=== PATIENT | female | born 1945 | race African-American/Black ===

== ENCOUNTER 2020-04-16 14:58 | Inpatient (IN) | payer OTHER ==
[~2020-04-16] VITALS: Ht 172.7 cm; Wt 72.1 kg
[2020-04-16] MEDS ORDERED: NORVASC 2.5 MG2.5 M1 PO (15:22)
[2020-04-16] MEDS ORDERED: EMERGEN-C 500500 MG PO (15:37)
[2020-04-16] MEDS ORDERED: ASA81BEC PO (15:38)
[2020-04-16] MEDS ORDERED: BUSPIRONE HCL10 MG PO (15:40)
[2020-04-16] MEDS ORDERED: CARVEDILOL25 MG PO (15:41)
[2020-04-16] MEDS ORDERED: CLONIDINE HCL0.2 M2 PO (15:42)
[2020-04-16] MEDS ORDERED: CYMBALTA60 MG PO (15:43)
[2020-04-16] MEDS ORDERED: SLOW FE142 MG PO (15:46)
[2020-04-16] MEDS ORDERED: FUROSEMIDE 20 M20 MG PO (15:47)
[2020-04-16] MEDS ORDERED: ARAVA20 MG PO (15:49)
[2020-04-16] MEDS ORDERED: COZAAR 25 MG TA25 M1 PO (15:50)
[2020-04-16] MEDS ORDERED: SINGULAIR 10 MG10 MG PO (15:51)
[2020-04-16] MEDS ORDERED: KLOR-CON 1010 MEQ PO (15:55)
[2020-04-16] MEDS ORDERED: SEROQUEL 50 MG50 M1 PO (15:57)
[2020-04-16] MEDS ORDERED: SIMVASTATIN80 MG PO (15:58)
[2020-04-16] MEDS ORDERED: SUPER THERAVIT1 EACH PO (15:59)
[2020-04-16 17:00] VITALS: BP 146/78
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
[2020-04-16 20:30] VITALS: BP 146/78
--- NOTE | 2020-04-17 07:39 | NUR ---
PATIENT HAS BEEN COMBATIVE AND YELLING AND ATTENTION SEEKING. SHE IS A HI FALL RISK AND WILL STAND AND THEN BECOME UNSTEADY ON FEET OR LEGS BUCKLE OUT FROM UNDER HER. SHE HAS BEEN REFUSING MEDICATIONS AND ARGUMENTATIVE. PATIENT GIVEN GEODON 15MG IM AT 04/16 FOR BEHAVIORS. PATIENT USES WC DURING DAY. SHE IS A/0 1-2. PATIENT IS UNCOOPERATIVE AND DOES NOT FOLLOW DIRECTIONS.
[2020-04-17 11:35] VITALS: BP 157/91
--- NOTE | 2020-04-17 13:02 | NUR ---
Sitting in recliner with sitter at side. Alert and orientated X2, answering questions appropriately. Denies SI/HI. Makes spontaneous jerks occassionally. Some attention seeking behavior. Breath sounds clear t/o. Reg HR auscultated. Color pink with brisk capillary refill and palpable peripheral pulses. Yellow urine per commode. Active bowel sounds over soft, rounded abdomen. States BM was yesterday, smear of stool this am. Thick, dry skin over healed wound on coccyx, optiform applied.
--- NOTE | 2020-04-17 13:58 | NUR ---
ELENA contacted Shona Reynolds. No answer. Lft msg. ELENA contacted Jackie with [email or web address] at [phone]. No answer. Lft msg
[2020-04-17 21:40] VITALS: BP 167/103
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
[2020-04-17 22:00] VITALS: BP 167/103
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
--- NOTE | 2020-04-18 03:33 | NUR ---
Patient has been up all night at this time. Labile, delusional. Patient is now rocking back and forth aggressively, attempting to throw self forward and out of chair. Patient also making suicidal statements and wrapping her hands around her neck. Patient becoming more difficult to re-direct. Dr. Green notified. Order obtained for Ativan 2mg IM 1x dose stat.
--- NOTE | 2020-04-18 05:02 | NUR ---
Approximatly 330 am patient has become unconsolable. Patient threatening to choke herself and rocking wildly in her reclining chair. Patient is a 1:1 and a lap vnaessa was put on. Patient given 2ml of Lorazapam IM for behaviors and anxiety. We will continue to monitor per hospital protocol.
--- NOTE | 2020-04-18 12:00 | NUR ---
Took AM meds. Has sitter 1:1 for safety. No mention of SI/HI/AH/VH. Eating well. Conversing with sitter, though did get upset with nuerse and sitter. Kept talking loud saying no one should tell her what to do.
--- NOTE | 2020-04-18 15:55 | NUR ---
Was given PRN IM for agitation, cursing, inappropriate behavior, loud. went to sleep when came to dayroom afterwards. Slept through lunch, offered lunch later. behavior improved.
[2020-04-18 20:17] VITALS: BP 151/95
[2020-04-18 20:30] VITALS: BP 151/95
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
--- NOTE | 2020-04-19 11:45 | NUR ---
pt. refused to haveher blood sugar taken at ll:00. Dr. noel notified.
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
--- NOTE | 2020-04-19 13:46 | NUR ---
Pt was in hallway when I first saw her sitting in the lounge chair. Pt was ververbal, loud and saying I want to , come on give me some medicine so I can . Staff has tried to calm pt down and encourage hertotake her medications with little results. The DR ordered 15 mg IM Geodon for aggitation and confussion. Pt was also on the phone talking with her sister [DPLUCHO] about refusing to do blood sugar testing or taking Insulin doses. Pt is in lounge chair when IM geodon was given. To observe pt for safety.
[2020-04-19 16:22] VITALS: BP 109/68
[2020-04-19 19:19] VITALS: BP 182/94
[2020-04-19 22:00] VITALS: BP 182/94
--- NOTE | 2020-04-20 06:54 | NUR ---
PATIENT HAS BEEN VERY PLEASANT THIS MORNING. SHE HAD HER LAB WORK DRAWN AND DID NOT COMPLAIN, SCREAM OR BECOME COMBATIVE. SHE REMAINED CALM. SHE HAS BEEN VERY POLITE THIS MORNING AND HAS BEEN TOILETED TWICE. NEW ORDER FOR FBS AC BREAKFAST DAILY. PATIENT SITTING IN DINING ROOM DRINKING COFFEE AND SITTING QUIETLY.
[2020-04-20 07:20] VITALS: BP 171/101
[2020-04-20 08:00] VITALS: BP 163/97
--- NOTE | 2020-04-20 09:23 | NUR ---
PT SITTING IN DINING ROOM IN RECLINER. PT STATED HER GOAL IS TO READ A BOOK TO BUILD HIMSELF UP. PT DENIES ANY PAIN AT THIS TIME. PT DID SAY SHE HAS NUMBNESS TO HANDS AND FEET. SHE IS WEARING GLOVES DUE TO NUMBNESS OF HANDS. PT LUNGS CLEAR. PT USES WALKER TO AMBULATE, PT ALSO LIKES TO SIT IN RECLINER IN DAY ROON. PT TOOK MEDS WITHOUT ANY ISSUES. PT WANTED VITAMIN CUT IN HALF.
--- NOTE | 2020-04-20 18:16 | NUR ---
PT TAKING PO MEDICATION THIS DEUCE, PT UPSET ABOUT THE AIDES TAKING HER FOOD TOO EARLY. PT DOES DOOZE OFF AT TIMES IN THE CHAIR. PT DID HAVE A LARGE FORMED BM TODAY. PT ABLE TO TRANSFER TO BSC X1-2 ASSIST.
[2020-04-20 20:00] VITALS: BP 142/83
[2020-04-20 22:00] VITALS: BP 142/83
--- NOTE | 2020-04-21 00:55 | NUR ---
Assumed care of patient this pm shift. Patient in good spirits. Patient states that she is trying to turn over a new leaf. Patient talkative and cooperative with RN. Patient med adherent. Patient takes medications whole with fluids. Patient denies hi/si. Patient ambulates via wheelchair. Patient is a falls risk and is wearing the yellow shirt and yellow slippers. Patient requires assistance getting from the wheelchair to the bed or toilet. Patient is alert and oriented to self, place, time, and situation. Patients assessment shows no acute distress. We will continue to monitor per hospital protocol.
[2020-04-21 07:51] VITALS: BP 172/101
[2020-04-21 10:50] VITALS: BP 115/67
--- NOTE | 2020-04-21 12:43 | NUR ---
1225 RESUMMED CARE FROM OVERNIGHT SHIFT THIS AM, PATIENT SITTING IN DAY ROOM WAITING FOR BREAKFAST. PATIENT ATE TOOK MEDICATION WITHOUT INCIDENCE, PATIENTS ABDOMEN SOFT ROUND BOWEL SOUNDS PRESENT. PATIENTS LUNGS CLEAR PATIENT DENIES SI/HI/AH/VH AT PRESENT. PATIENT IN RECLINER FOR MORE COMFORT THEN W/C PATIENT CALM COOPERATIVE. WILL CONTINUE TO MONITOR PATIENT FOR SAFETY AND BEHAVIORS.
--- NOTE | 2020-04-22 02:47 | NUR ---
04-21-20 CARE TRANSFERED 1915 PT SITTING IN DAY ROOM IN RECLINER. 2000 PT AAOX2 PT IS TEARFUL AND SHE REPORTS BECAUSE NONE OF HER FAMILY WILL VISIT HER; ATTEMPTED TO COMFORT, THEN PT SWITCH TO SHE IS IN HORRIBLE PAIN. PT VSS, RR EVEN AND NONLABORED ON RA, PT REPORTS PAIN IN LEFT HIP 10 ON 0-10 SALE, PT DENIES SI/SH/HI/VAH. PT MAR REVIEWED AND NOTED ZERO PAIN MEDICATION AVILABLE AND TYLENOL WAS D/C PRIOR TO MEDICATION ADMIN. PT HAD ZERO DIFFICULTIES TAKING MEDICATION. ASSISTED PT ONTO BEDSIDE COMMODE AND PT HAD LARGE FORMED, FIRM GREENISH BROWN BM WITH SMALL AMOUNT OF YELLOW URINE, PLACED PTIN BED AND ADUSTED BED FOR CONFORT, BED LOWEST POSITION, LOCKED AND ALARM ON. APPROXIMATELY 2340 RESPONDED TO PT ROOM AND PT REPORTED SHE CANNOT TAKE THIS PAIN ANY MORE, PT REPORT OVERALL BODY PAIN AT A 15 ON O-10 SACLE, PT SKIN W/D, FACIAL FEATURES RELAXED, PT IS TEARFUL, MAR REVIEWED AND SLEEP AID PROVIDED. DURING NEXT ROUND NOTED PT SUPINE RESTING WITH EYES CLOSED. OF NOTE, PLEASE REFER TO NURSING INTERVENTIONS FOR MORE INFORMATION. ZERO ACUTE EMOTIONAL OR MEDICAL DISTRESS NOTED. WILL CONTINUE TO MONITOR PT PER [facility] PROTOCOL.
[2020-04-22 08:58] VITALS: BP 136/101
[2020-04-22 20:03] VITALS: BP 156/87
[2020-04-22 22:00] VITALS: BP 156/87
--- NOTE | 2020-04-23 00:39 | NUR ---
Assumed care of patient this pm shift. Patient in good spirits in her bed. Patient denies hi/si. Patient does state that she has pain and was given tylenol that is scheduled. Patient is neat and clean. Patient is medication adherent. Patient takes medications whole with thin fluids. Patient is alert and oriented x3. Patient is not ambulatory and uses a wheelchair for trips to the [facility] and can use a walker which is in her bedroom. Patients assessment shows no signs of acute distress. We will continue to monitor per hospital protocol.
--- NOTE | 2020-04-23 04:19 | NUR ---
Patient up at this time. Patient toileted and assisted to dayroom per patient request. Patient reporting increased pain to right hand. 2+ pitting edema observed to right hand. Pulse equal and strong. <3 sec cap refill. Decreased ROM. Patient denies hitting hand accidentally. HAIR Saravia, notified. Order obtained for Ibuprofen 400mg PO 1x dose now; right hand x-ray 2 view in the AM.
[2020-04-23 05:58] LABS: HEMATOCRIT 25.3 % (37.0-47.0); HEMOGLOBIN 8.5 gm/dL (12.0-15.0); MCHC 33.4 g/dL (28.0-37.0); MCV 83.8 fL (80.0-100.0); PLATELET COUNT 226 thou/uL (150-400); RBC 3.02 mil/uL (4.20-5.00); RDW 15.3 % (10.5-14.5); WBC 7.4 thou/uL (4.0-11.0)
[2020-04-23 06:07] LABS: CALCIUM 9.2 mg/dL (8.5-10.1); POTASSIUM 3.2 mmol/L (3.5-5.1)
[2020-04-23 07:45] VITALS: BP 155/58
[2020-04-23 08:46] LABS: ABSOLUTE NEUTROPHILS 5.8 thou/uL (1.4-8.2); PLATELET ESTIMATE NORMAL
[2020-04-23 10:23] VITALS: BP 151/84
[2020-04-23 11:20] LABS: ABSOLUTE RETIC COUNT 0.0464 10^6/uL; OBSERVED RETIC COUNT 1.54 % (0.6-2.6)
[2020-04-23 11:27] LABS: % SATURATION 4 % (20-39); IRON 10 ug/dL (50-170); TIBC 224 ug/dL (250-450)
--- NOTE | 2020-04-23 12:52 | NUR ---
RT Progress Note- Nuvia remains present in the milieu though her participation and attendance in recreation groups is variable dependent upon her mood. When in attendance, Nuvia requires reminders to stay on task as she enjoys talking and telling stories. Nuvia requires staff assistance to modify some activity d/t pain and swelling in her hands.
--- NOTE | 2020-04-23 13:12 | NUR ---
1300 RESUMMED CARE THIS AM FROM OVERNIGHT SHIFT THIS AM, PATIENT IN DAY ROOM IN RECLINER QUIET. PATIENT ATE BREAKFAST WITH ASSISTANCE FROM NURSE PATIENT TOOK MEDICATION WITHOUT INCIDNCE. PATIENTS ABDOMEN SOFT ROUUND BOWEL SOUNDS PRESENT LUNGS CLEAR. PATIENT DENIES SI/HI/AH/VH AT PRESENT. HOSPTALIST CAME AND TALKED WITH PATIENT ABOUT THYROID AND WEIGHT LOSS. PATIENT VERY TALKATIVE WITH STAFF AND OTHER PATIENTS. PATIENT COOPERATIVE NO BEHAVIOR PROBLEMS WILL CONTINUE TO MONITOR PATIENT FOR SAFETY AND BEHAVIORS.
--- NOTE | 2020-04-23 17:45 | NUR ---
ELENA left message for Dara with [facility] [phone]. ELENA spoke to Shona sister with Dr. Green to provide an update on patient's care. Shona was concerned about needing to pay pt's rent for the month of April. She was informed that Dr. Green's recommendation is placement in a facility that can address her complex medical and physical needs. She was also informed the team would follow up with her on Thursday of this week.
[2020-04-23 20:14] VITALS: BP 127/66
[2020-04-23 22:00] VITALS: BP 127/66
--- NOTE | 2020-04-24 00:43 | NUR ---
Assumed care of patient this pm shift. Patient in good spirits. Patient calm and cooperative. Patient denies hi/si. Patient wants to get up and walk and get some exercise and requested that the RN set up physical therapy and occupational therapy. Patient states that she has pain in the right hand. The right hand shows swelling at 2+. Patient takes medications whole with thin fluids. Patients assessment shows no signs of acute distress. Patient ambulates via wheelchair. Patient is incontinent of bowel and bladder. We will continue to monitor per hospital policy.
[2020-04-24 08:08] LABS: THYROID PEROXIDASE AB 11 IU/mL (0-34)
[2020-04-24 08:30] VITALS: BP 161/100
[2020-04-24 09:29] VITALS: BP 161/100
--- NOTE | 2020-04-24 09:45 | NUR ---
PT SITTING IN DINING ROOM IN GROUP, PT STATED SHE NEEDED A ROGERS DUE TO FEELING TO VOMIT. PT VOMITED PARTIALY DIGESTED FOOD. PT STATED SHE DID EAT ALL HER BREAKFAST. PT STATED SHE THINKS ITS FROM PSYCHOTROPHIC MEDICATION, THAT HER BODY IS REJECTING IT. PT STATED SHE KNEW SHE WAS FEELING SICK.
--- NOTE | 2020-04-24 09:53 | NUR ---
ADM ZOFRAN 4MG PO FOR NAUSEA. PT WASHED OUT HER MOUTH WITH WATER AND MOUTH WASH.
[2020-04-24 10:30] VITALS: BP 146/85
--- NOTE | 2020-04-24 10:30 | NUR ---
ADM BP MEDICATION AT THIS TIME. PT BP BETTER 146/85, PULSE 97.
--- NOTE | 2020-04-24 11:06 | NUR ---
PT VOMITING AT THIS TIME AGAIN. PT STATED SHE HAS SOME PAIN TO LEFT ARM, PT STATED IT WASN'T NEW.
--- NOTE | 2020-04-24 11:47 | HC ---
[facility] [place] [address] CONSULTATION Name: JEY BROWN Room #: 521A-A ADM IN M.R.#: [id number] Admission: 04/16/20 Attend Phys: Alber Green DO Discharge: Date of : 45 Report #: [id number] THIS REPORT FOR: cc: [facility] - Clinic physician unknown [facility] - Clinic physician unknown Can Ochoa MD ~ CC: Alber PATE unknown DATE OF SERVICE: 04/23/2020 ENDOCRINE CONSULTATION NOTE CONSULTING PHYSICIAN: Alber Green D.O. REASON FOR CONSULTATION: Hyperthyroidism. HISTORY OF PRESENT ILLNESS: This is a 74-year-old female patient whose medical background is significant for multiple medical issues including coronary artery disease, history of prior CVA, hypertension, hyperlipidemia, chronic kidney disease as well as type 2 diabetes mellitus. The patient also has a significant psychiatric background noted for schizoaffective disorder. It appears that the patient has had a lengthy stay at the [facility] for the issue of diskitis with prolonged IV antibiotic therapy. She was subsequently transferred directly from the [facility] due to increased psychotic changes and agitation. The patient has fairly extensive [facility] records, which were reviewed in their entirety. During her hospital stay there, the patient was treated for hypertensive urgency as well as for the issue of diskitis and osteomyelitis centered at C7/T1 and C6/T1. The patient was treated with antibiotics and discharged with a PICC line to enable vancomycin and Rocephin therapy. During her current hospital stay, the patient was investigated with thyroid function studies, which pointed out to evidence of possible hyperthyroidism. On further questioning, the patient explained that she does not have a prior personal history or family history of thyroid disease. She denied having palpitations, but explained that she would have recurrent episodes of chest discomfort and heaviness to where she would think she might be having a heart attack, she has not had particular issue with tremors. She believes that she has lost some weight, but is unable to identify how much weight and the duration of time that it took to incur that weight loss. She has been more anxious and agitated lately. The patient has been dealing with sleep disturbances chronically. She does not believe that she is typically heat intolerant or subject to excessive sweating. The patient denies having experienced significant neck fullness, discomfort, compressive symptoms or voice changes. [address] [address] CONSULTATION Name: JEY BROWN Room #: 521A-A [facility] IN ..#: [id number] Admission: 04/16/20 Attend Phys: Alber Green DO Discharge: Date of : 45 Report #: [id number] The patient's history is noted for type 2 diabetes mellitus, which was treated with metformin monotherapy. Also, the patient's background is noted for polymyalgia rheumatica and fibromyalgia and it appears that the patient has received chronic prednisone therapy for these issues. REVIEW OF SYSTEMS: CONSTITUTIONAL: Fatigue, tiredness, but not recent fever or chills. The patient believes that she had lost weight. HEENT: Negative for sore throat, sinus pain or ear drainage. PULMONARY: Occasional shortness of breath and cough. No hemoptysis. CARDIAC: Occasional chest heaviness, but no palpitation, syncope or presyncope. GASTROINTESTINAL: Negative for abdominal pain, nausea, vomiting or changes in bowel movement frequency. NEUROLOGY: Negative for loss of consciousness, headaches, seizure activity. PSYCHIATRIC: History is noted for schizoaffective disorder. MUSCULOSKELETAL: Diffuse joint and muscle aches with a baseline history of polymyalgia rheumatica and fibromyalgia. Otherwise, review of systems noncontributory other than those mentioned in HPI. DRUG ALLERGIES: FELDENE, LISINOPRIL, FLOVENT and TAPE. PAST MEDICAL HISTORY: 1. Type 2 diabetes mellitus. 2. Jolly's palsy. 3. Hypertension. 4. Hyperlipidemia. 5. Polymyalgia rheumatica. 6. Schizoaffective disorder. 7. Cervical spinal stenosis. 8. Cervical diskitis. 9. History of CVA. PAST SURGICAL HISTORY: 1. Hysterectomy. 2. Left breast biopsy. 3. Appendectomy. 4. Back surgery. 5. Bilateral knee replacement. 6. Rectal surgery. CURRENT MEDICATIONS: Include Tylenol 650 mg q.6 hours p.r.n., multivitamins daily, simvastatin 20 mg at bedtime, Seroquel 50 mg t.i.d., Singulair 10 mg at bedtime, losartan 100 mg daily, Arava 20 mg daily, Lasix 20 mg daily, ferrous sulfate 325 mg daily, duloxetine 60 mg daily, clonidine 0.2 mg daily, carvedilol 25 mg b.i.d., buspirone 5 mg b.i.d., enteric-coated aspirin 81 mg daily, [facility] [address] [place] [address] CONSULTATION Name: JEY BROWN Room #: 521A-A ADM IN [facility].#: [id number] Admission: 04/16/20 Attend Phys: Alber Green DO Discharge: Date of : 45 Report #: [id number] amlodipine 10 mg daily. FAMILY HISTORY: Negative for thyroid disease. SOCIAL HISTORY: The patient denies use of tobacco, alcohol or illicit drugs. PHYSICAL EXAMINATION: GENERAL: Pleasant -Cymraes female patient who is not in apparent distress. VITAL SIGNS: Blood pressure is 151/84 mmHg, heart rate is 93 beats per minute, respirations 13 per minute, temperature 37.1 degrees Celsius. CONSTITUTIONAL: The patient is sitting upright in her wheelchair, appears relatively comfortable, not in apparent distress. HEENT: Anicteric sclerae. Intact extraocular motions. NECK: Supple, without JVD, carotid bruits. No thyromegaly. CHEST: Noted for limited air entry bilaterally with scattered rales. No wheeze or crackles. HEART: Regular rate and rhythm without murmurs or gallops. ABDOMEN: Soft, lax. No guarding. Active bowel sounds. EXTREMITIES: Lower extremities exam is noted for trace ankle edema. No skin breaks or ulcerations. NEUROLOGIC: Awake, alert and oriented to time, place and person. The remainder of examination is nonfocal. PSYCHIATRIC: Normal mood and affect, interactive, mostly normal thought process. LABORATORY RESULTS: Blood glucose values during her hospital stay so far have predominantly ranged from 100-160 mg/dL. Otherwise, sodium 133, potassium 3.2, chloride 97, CO2 of 29, anion gap 7, BUN 17, creatinine 1.0, calcium 9.2. EGFR 66. Free T4 1.7, free T3 2.49. Iron 10. White blood count 7.4, hemoglobin 8.5, hematocrit 25.3, platelets 226. TSH is 0.290. ASSESSMENT AND PLAN: 1. Hyperthyroidism. As noted above, the patient's recent thyroid function studies have a collective outlook that is consistent with subclinical hyperthyroidism. Clinically, the patient is largely euthyroid. The patient's free T4 is just at the top end of normal range and her TSH is only slightly suppressed. Whether these represent a true outlook of hyperthyroidism versus potential suppression from recent and prolonged glucocorticoid therapy with a resultant TSH suppression is unclear. In theory, even mild hyperthyroidism at a subclinical state could potentially augment and precipitate worsening of existing peg and agitative psych issues. I would like to obtain thyroid serology studies with thyroid peroxidase antibodies and thyroid stimulating immunoglobulins. If these are unremarkable, then it would be reasonable to monitor the patient's progress and allow her to have more clinical stability before reevaluating her thyroid function studies in 6-8 weeks out. However, if [address] [address] CONSULTATION Name: JEY BROWN Room #: 521A-A ADM IN .R.#: [id number] Admission: 04/16/20 Attend Phys: Alber Green DO Discharge: Date of : 45 Report #: [id number] her thyroid stimulating immunoglobulin is positive, then I would have a low threshold to initiate low-dose methimazole therapy. 2. Type 2 diabetes mellitus. The patient was reportedly well controlled with low-dose metformin therapy in the past. She continues to have blood glucose values that are well within target limits without active medicinal therapy. Maintain the same approach with diabetic diet control. 3. Hypertension. The patient's level of blood pressure control is marginal. Continue with the current medicine or the current antihypertensive regimen and adjust as per the primary Hospital Medicine team. 4. Hyperlipidemia. The patient is currently on atorvastatin therapy and tolerates that well, she is to continue with the same. I have reviewed the patient's clinical care notes past and present as well as her extensive [facility] medical records as well as laboratory data for over 35 minutes in addition to my encounter time with her. I certainly appreciate this consultation by Dr. Green. <ELECTRONICALLY SIGNED> By: Can Ochoa MD 04/24/20 [id number] [id number] Can Ochoa MD /nt
--- NOTE | 2020-04-24 12:11 | NUR ---
PT EATING LUNCH AT THIS TIME. NO MORE NAUESA.
--- NOTE | 2020-04-24 12:41 | NUR ---
ELENA contacted Dara with [facility] and was told she was not responding. ELENA was given her direct line of [phone]. ELENA contacted this number. No answer. SW team will continue to follow pt during her stay on this unit.
--- NOTE | 2020-04-24 15:14 | NUR ---
PT WANTING TO CALL HER BANK FOR A PAYMENT FOR RENT. PT WALKED UP TO NURSES DESK WITH WALKER, STEADY GAIT. PT ASKING FOR THE PHONE. PT CALLED 911 AND ALSO YELLING FOR THE PHONE. PT TOOK AFTERNOON MEDS WITHOUT ANY ISSUES.
--- NOTE | 2020-04-25 01:47 | NUR ---
Care assumed of patient at 1915: Patient seated in bed at start of shift. Patient hyperverbal, fairly organized speech. Alert and oriented to person and place. Confused and forgetful on time and situation. Patient denies anxiety and depression. Patient did report that she felt "sick" and wanted to feel better. Patient had a continent large BM. Stool specimen collected and taken to lab. Patient continent of bladder. Patient was able to walk with walker with assist x1. Gait slow and unsteady. Patient makes quick, impulsive movements. Patient attempted to get out of bed independently several times this shift. When nurse was completing education, patient began to yell at nurse, verbally aggressive, stating "I have rights", "I'm not a kid", "You need to treat your elders with respect". Once patient was done yelling, patient was able to be educated on fall risk, importance of using call light for assistance and to not get out of bed independently. Patient quickly apologized and stated that she will ask the doctor for "anger management classes". Patient had 1 episode of emesis, clear water, approximately 60cc. Patient declined HS snack. Took HS medication whole without difficulty. Patient even asked nurse if she had her "antipsychotics" because she knows she has a problem. Patient started to fall asleep while sitting on the side of the bed. Patient assisted to seated position in bed. Patient declined to have her light turned off because she needed to "meditate and read the word". Patient appears to have fallen asleep but is leaning in a foward position, sitting in bed. Anytime staff approaches her to assist her in laying back, she becomes irritable. Patient did report pain to bilateral hands. Swelling present to right hand. Scheduled Tylenol administered. Patient denies SI/HI/AH/VH.
--- NOTE | 2020-04-25 04:12 | NUR ---
Pt was calling out. Nursing went to inquire what was going on. Pt voiced being in pain and was wanting pain med. Pt voiced that her left hip was fractured and she's needing "emergency surgery". Pt did not have prn pain med. Ativan given at this time to help pt relax. Pt's nurse notified when back from break.
[2020-04-25 05:58] VITALS: BP 172/97
[2020-04-25 09:02] VITALS: BP 183/91
--- NOTE | 2020-04-25 10:44 | NUR ---
Assumed care 0700. Out for breakfast, but was too nauseated to eat breakfast. AM meds held. Nausea is clear saliva x 2 and yellow liquid. BP rechecked without sweater on and with manual cuff. Right NS=378/100 p=88, r=24 @0940 and Left BP= 200/100, p=80, r=26. C/o neck, left hip, spine pain. Says she feels bad, thinks she has a virus yet Temp earlier =98.6 orally. Skin does not feel extraordinarily warm. Wanted to lie down-was put to bed to rest. While BP being checked kept movint upper otrso forward, backward. Said she feels like her coccyx is broken. Nurse has noted two new med orders yet nausea was treated with PO Zofran prior to breakfast with two nausea episodes.
--- NOTE | 2020-04-25 12:41 | NUR ---
ELENA contacted Sh[facility]. No answer. ELENA lft msg.
--- NOTE | 2020-04-25 15:23 | NUR ---
Continues nauseated. E.M. milk and Glucerna and a few bites of chicken. Unable to keep fluids down. KUB not revealing.
--- NOTE | 2020-04-25 19:05 | NUR ---
Iv .9% NS started with 22 gauge IV needle approximately 1630 by ER-RN and Dr. Green. Pt. was reminded several times to keep left arm straight. Left arm was uncovered with the blanket at approximately 1830 due to IV infiltration=large swelling/edema around IV site. IV removed, Dr. Green notified, IV Team notified, replacing Iv left upper arm above former site. #22 gauge medium length IV needle in left upper arm. IV continued at 250 ml/hr. Used bedpan with fracture dumont full to the brim. Tolerating ice chips well. Instructed patient not to put pressure on left arm, not to move left arm to keep IV intact. 1 to 1 staffing ordered. RN brooke replaced RN from dayshift.No further emesis after noon few bites chicken/potatoes and milk with glucerna was vomited. She was fed her dinner. Had nausea but no emesis thru dayshift. Sandra ice chips well.
[2020-04-25 22:00] VITALS: BP 160/110
--- NOTE | 2020-04-26 01:04 | NUR ---
Assumed care of patient this pm shift. Patient was recieving an IV infusion of normal saline, 1000mls infused. Patient denies hi/si. Patient states that she was nauseated earlier in the shift. Patient takes medications whole with thin fluids. Patient is alert and oriented x3. Patients assessment shows clear breath sounds, active bowel sounds, and s1 s2 heard with auscultation. No signs of acute distress. Patient in hospital attire, yellow shirt. Patient is cooperative and medication adherent. Patient ambulates via wheelchair. We will continue to monitor per hospital protocol.
[2020-04-26 06:06] LABS: THYROID STIMULATING IG < 0.10 IU/L (0.00-0.55)
[2020-04-26 06:20] LABS: HEMATOCRIT 28.3 % (37.0-47.0); HEMOGLOBIN 9.3 gm/dL (12.0-15.0); MCH 27.4 pg (26.0-34.0); MCHC 32.9 g/dL (28.0-37.0); MCV 83.4 fL (80.0-100.0); RBC 3.39 mil/uL (4.20-5.00); RDW 14.8 % (10.5-14.5); WBC 5.3 thou/uL (4.0-11.0)
[2020-04-26 06:47] LABS: CALCIUM 9.4 mg/dL (8.5-10.1)
[2020-04-26 06:52] LABS: POTASSIUM 2.8 mmol/L (3.5-5.1)
[2020-04-26 07:29] VITALS: BP 134/78
--- NOTE | 2020-04-26 11:29 | NUR ---
ELENA contacted Shona Reynolds. No answer. ELENA left [facility]. SW team will continue to follow pt during her stay on this unit.
--- NOTE | 2020-04-26 13:22 | NUR ---
Nutrition: Assessed for LOS. Here w/ unspecified psychosis. Hx: DM, CAD, CVA x 2, schizoaffective disorder, polycystic kidney disease, HTN, hepatitis. Visited unit this afternoon. Pt unavailable- either in meeting w/ provider or attending group. Pt has been struggling w/ frequent nausea; ocassional emesis this week. KUB showed significant stool load per provider note. Plan includes to add milk of mag, plus prn enemas. Last charted BM 04/24. As a result of pt's N/V, po intake prior to today was very low and sporadic. Today per EMR, is pt's best PO intake day - eating 100% of breakfast and 80% of lunch. Weight is healthy at 155#, BMI 23.6 kg/m2. Will wait to see more meal trends to see if po intake can remain consistently > 2/3 and reassess if there are nutrition needs early next week. If stool load able to decrease, hopefully nutrition intake will be easier/more successful.
--- NOTE | 2020-04-26 15:49 | NUR ---
ELENA met with patient who informed that her sister is no longer her payee. She is trying to get her rent paid. Patient was on the phone with her bank. The outreach representative with [email or web address] stated she was unable to authenticate patient so she could not provide her any account information. The outreach representative suggested patient contact her apartment complex and explain her current situation. ELENA assisted patient with calling her apartment complex [facility] [phone] to explain her situation. ELENA Webb notified for any followup necessary.
--- NOTE | 2020-04-26 18:40 | NUR ---
Sitting in recliner most of day without s/o distress. Ambulates with walker with slow steady gait under supervision. Alert and orientated X4. Interactive with staff and peers. Denies SI/HI. States she had back pain and L leg pain but declines pain medication stating she always has this amt of pain. 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 Pleasant and calm all day. Breath sounds clear t/o. Reg HR auscultated. Color pink with brisk capillary refill and palpable peripheral pulses. No edema noted. Voiding per commode, dark yellow urine. Active bowel sounds over soft, rounded abdomen. MOM and fleets enema given per order. Medium. soft, brown stool per commode. Bruise around dakota prominence at top of thoracic spine. Coccyx area pink with dry skin, ointment applied. Dr. Lyn notified of K+ of 2.8, KCL 20meq given PO X 2 per order.
[2020-04-26 19:55] VITALS: BP 117/76
--- NOTE | 2020-04-27 04:56 | NUR ---
04-26-20 CARE TRANSFERED 1914 PT AAOX2, SITTING IN CHAIR IN DAY ROOM, PT PLEASANT AND COOPERATIVE THROUGH NURSING ASSESSMENT. PT VSS, PT DENIES SI/SH/HI/VAH. PT REPORTS PAIN IN LEFT HIP AND SCALES 7 ON 0-10 SCALE. DURING MEDICATION ADMIN PT HAS ZERO DIFFICULTIES. LATER DURING ROUNDS NOTED PT BED WAS ELEVATED AND LOWERED BED AND PLACED ALARM ON AND EDUCATED NEW MASTER AUTOMOTIVE GLASS TECHNICIAN ON MAKING SURE BEDS ARE IN LOWEST POSITION. DURING ROUNDS NOTED PT STILL SITTING IN BED AND PT REPORTED SHE COULD NOT SLEEP. ANOTHER RN REPORTED THAT HE ACCESSED HER WHILE THIS RN WAS ON BREAK AND PT WAS UPSET AND TEARFUL THAT RN REVIEWED MAR AND ADMIN PRN MEDICATION SEE MAR FOR MORE DETAILS. LATER DURING ROUNDS PT WAS SITTING BESIDE BED IN CHAIR; PT AGAIN STATED SHE CANNOT SLEEP AND DID NOT WANT TO BE IN BED. PT WAS ASSISTED IN RECLINER AND BROUGHT TO DAY ROOM. APPROXIMATELY 4:15 PT REPORT HER STOMACH WAS UPSET AND MYLOX WAS ADMIN. APPPROXIMATLEY 0500 NOTED PT RESTING BENDING OVER IN RECLINER. ZERO EMOTIONAL OR MEDICAL ACUTE DISTRESS NOTED.
[2020-04-27 09:02] LABS: CALCIUM 9.4 mg/dL (8.5-10.1); POTASSIUM 3.4 mmol/L (3.5-5.1)
[2020-04-27 09:04] VITALS: BP 178/100
--- NOTE | 2020-04-27 10:06 | NUR ---
ELENA sent an email to [employer] requesting pt's DCN for [place] Medicaid. Dr. Green reported to ELENA that pt is not looking well today. SW team will continue to follow pt during her stay on this unit.
[2020-04-27 17:00] VITALS: BP 148/96
--- NOTE | 2020-04-27 23:02 | NUR ---
Care assumed of patient at 191: Patient seated in dayroom at start of shift. Patient observed ambulating back to her room with walker and multiple items in her arms. Nurse offered to carry some of her items back to her room. Patient had the cordless phone in her hand and would not allow for staff to have the phone. Patient restless about her room. Bed alarm sounding multiple times. Patient refusing to remain seated and follow safety precautions for high fall risk. Patient was also observed dialing the phone. Nurse asked who patient was calling. Patient stated her sister in law. Nurse offered for patient to dial the phone and asked what the number was. Patient stated she was calling 911 to get the number for her sister in law. Attempted to educate patient that 911 is for emergencies only. Phone had to be taken from patient. Nurse told patient that staff could assisting in finding her sister in laws phone number but she would need to be patient. Patient became verbally aggressive and stated "I will no longer work with you" after phone was taken. Patient declined some of her HS medications but did take blood pressure, hyperlipidemia and Ativan medications. Patient became increasingly restless and delusional. Stating she was getting in the shower, she didn't need help from anyone, she didn't know why she was in the hospital, she is being held hostage, demanding to be discharged. Another nurse approached patient to see if she would remain more calm. Patient became more agitated and physically aggressive by throwing and hitting staff with her walker. Patient slamming her door shut. Patient denied pain or discomfort. Denies SI/HI/AH/VH. MD notified of behaviors. Order obtained for Ativan and Haldol IM. Medication given with staff x5. Patient rude, hostile, combative. Patient became more restless after receiving medication. MD notified. Order obtained for 1:1 while awake and bilateral soft wrist restraints due to combative behaviors, use of sedative medications and unwillingness to comply with fall risk precautions. Soft wrist restraints applied to bilateral arms at 2234. Sitter 1:1 with patient. Patient was able to fall asleep by 2314. Restraints removed at 2316.
[2020-04-28 05:55] VITALS: BP 127/83
[2020-04-28 13:31] VITALS: BP 129/88
--- NOTE | 2020-04-28 18:20 | NUR ---
Alert and orientated X3 today with alot of resistance to taking meds/cares. Refusing about half her meds. After multiple approaches she was given choice of IM or PO haldol and she took med cup and threw medicines on the floor. 2.5mg Haldol given IM per L deltoid.
[2020-04-28 19:57] VITALS: BP 144/82
--- NOTE | 2020-04-29 03:48 | NUR ---
Assumed care on 04/28/20 @ 19:15, seated in day room in a chair at a table. Speaks when addressed, and socializing verbally with peers. provided prn Lorazepam @ 2200 for anxiety. Provided Tylenol ER for 03/04 back pain @ 2130, follow up back pain of 02/02, partial relief noted. HRRR, Lungs CTA, ABD Normoactive bowel sounds noted over a soft round abdomen. Urine output noted x3 yellow urine in bsc. Provided 2mg Halodol P.O. and 1mg Ativan P.O. @ 0015 for agitation, insomnia and anxiety. Became calm, and compliant with care for a few hours. Complained of pain, and Provided Tramadol for back pain of 03/04 @ 0220, follow up 02/02 with only partial pain relief noted. In bed at this time, bed in low position bed alarm set, head of bed upright in a sitting position at patient's insistance.
[2020-04-29 06:45] LABS: CALCIUM 9.1 mg/dL (8.5-10.1); CREATININE 1.1 mg/dL (0.6-1.0); PHOSPHORUS 3.2 mg/dL (2.5-4.9); POTASSIUM 3.9 mmol/L (3.5-5.1)
[2020-04-29 08:49] VITALS: BP 152/89
[2020-04-29 20:05] VITALS: BP 136/75
--- NOTE | 2020-04-30 02:31 | NUR ---
Assumed care on 04/29/20 @ 19:15. Seated on a sofa in [facility], cooperated with assessment, HRRR, Lungs CTA, ABD N x 4 Q. Not able to report if had a bm today. Last noted bm 04/26. Took scheduled meds whole with water. Crying and reporting pain @ 0055, Tramadol 50 mg p.o. provided along with Lorazepam 1mg p.o. Follow up @ 0144 noted to have only partial pain relief of 3/10. Sitting in bed with head of bed at 90 degree angle, patient bent forward with head in lap. Provided Cyclobenzaprine 5mg po for muscle spasm and Haloperidol 2.5 IM for severe agitation. Patient lying in bed with head of the bed in a nearly flat position, staff sat with patient until she calmed and closed eyes, respirations even and unlabored. Bed in low position, bed alarm set.
--- NOTE | 2020-04-30 06:40 | NUR ---
slept 5.7 hours overnight
[2020-04-30 07:49] VITALS: BP 152/95
--- NOTE | 2020-04-30 12:14 | NUR ---
Nutrition follow up: Reassessed meal trends this date. Pt doing much better w/ stooling per EMR. Was found to have significant stool load on KUB last week, now has had 4 BMs in the last 5-6 days. Required IM for severe agitation earlier this morning/overnight. Pt eating 75-100% of all meals the last 3 days. No meal refusals since 04/27 & pt eating well the day prior to this too. Meal average= 83% per the last 6 meals. Do note potential significant wt loss, from admit wt 152# on 04/16 to 140.6# per 04/28. This is 11# or a 7.5% wt change in 2 weeks, however do note pt was on Lasix for a period of time this admit, until recently stopped. Will follow future wt trends, especially now w/ adequate PO intake again. BMI still healthy, 21.4 kg/m2. Remain low nutrition risk, recheck for any further wt changes next week.
--- NOTE | 2020-04-30 16:01 | NUR ---
PT. CAME TO DAY ROOM WITH OTHER PEERS FOR DAILY ACTIVITES AND MEALS. JEY SEEMED HAPPIER AND MORE PLEASENT TO DAY. APPITITE GOOD , FLUIDS ENCOURAGED. ASSESSMENT, PT SAID SHE HAD A GOOD NITES SLEEP, MINIMAL PAIN REPORTED. aSSESSMENT, HEART SOUND STRONG , LUNGS CLEAR X2, PEDAL PULSE STRONG , BOWEL SOUNDS FAINT. PT PARTCIPATED IN ACTIVITES AND SOCIALIZING DURING MEALS. AT ABOUT 4 PM PT SAID SHE WAS TIRED AND WENT TO BED TO REST. I WAS ASKED BY PT FOR PAIN MEDICATION FOR BAD BACK PAIN RATING IT ABOUT 7/8. TORADOL WAS GIVEN ORDERED. ATTENDED PT EARILER IN THE DAY. STAFF TO CONTINUE TO OBSERVE PT.
[2020-04-30 16:24] VITALS: BP 152/89
--- NOTE | 2020-04-30 16:33 | NUR ---
ELENA provided Shona an update on pt's care. SW team will continue to follow pt during her stay on this unit.
[2020-04-30 20:04] VITALS: BP 184/111
[2020-04-30 21:15] VITALS: BP 168/96
--- NOTE | 2020-05-01 05:17 | NUR ---
04-30-20 CARE TRANSFERED AT 1915 OBSERVED PT IN DAY ROOM. PT AAOX3, SKIN W/D; PT CALM AND COOPERATIVE DURING NURSING ASSESSMENT PT RATES GENERALIZED PAIN AT 10 ON 0-10 SCALE. PT DENIES SI/SH/HI/VAH. PT EXPRESSED CONCERN ABOUT HER APARTMENT AND BELONGINGS, PT SHOWS SOME ANXIETY TOWARDS MOVING TO A NURSING FACILITY; PT EXPRESSED DESIRED TO SPEAK WITH PIECE DYEING MACHINE TENDER AND DOCTOR TOMORROW, WILL PASS THIS TO AM SHIFT. LATER REVIEWED PT VS, PRIOR TO MEDICATION ADMIN VS MANUAL B/P LEFT ARM SITTING 168/96, P 77, R 18, T 97.9, O2 SAT 96% RR EVEN AND NONLABORED ON RA. PT HAD ZERO DIFFCULTIES DURING MEDICATION ADMIN. ZERO ACUTE EMOTIONAL OR MEDICAL DISTRESS NOTED THROUGHOUT NURSING ROUNDS; WILL CONTINUE TO MONITOR PER [facility] PROTOCOL.
[2020-05-01 06:19] LABS: ALBUMIN 2.9 g/dL (3.4-5.0); CALCIUM 9.2 mg/dL (8.5-10.1); CREATININE 0.9 mg/dL (0.6-1.0); PHOSPHORUS 3.5 mg/dL (2.5-4.9); POTASSIUM 3.6 mmol/L (3.5-5.1)
[2020-05-01 08:56] VITALS: BP 162/88
[2020-05-01 09:58] VITALS: BP 162/88
--- NOTE | 2020-05-01 12:39 | NUR ---
PATIENT WAS SITTING IN DAYROOM WHEN CARE ASSUMED. HE IS ALERT, AND ORIENTED X 3-4 ABLE TO MAKE NEEDS KNOWN. PATIENT TOOK ALL MEDICATIONS WHOLE WITHOUT DIFFICULTY. APPETITE IS GOOD, PATIENT EATS 100% MEALS. PATIENT DENIES SUICIDAL/HOMICIDAL IDEATION. HE RATED BOTH DEPRESSION/ANXIETY 4/10. PATIENT DENIES AUDITORY/VISUAL HALLUCINATION. PATIENT REPORTS ADEQUATE SLEEP, HAD BOWEL MOVEMENT THIS MORNING. AFFECT IS EUTHYMIC, MOOD IS HAPPY. NO SIGN OF ACUTE DISTRESS NOTED AT THIS TIME, WILL MONITOR FOR SAFETY.
--- NOTE | 2020-05-01 13:00 | NUR ---
PATIENT WAS IN DAYROOM SITTING IN A WHEELCHAIR WHEN CARE ASSUMED. PATIENT IS ALERT AND ORIENTED X 3-4, ABLE TO MAKE NEED KNOWN. SHE CAN BE FORGETFUL AT TIMES. PATIENT TOOK ALL MEDICATION WHOLE WITHOUT DIFFICULTY. SHE IS EATING MEALS, AND DRINKING FLUID WELL. PATIENT IS HYPERTALKATIVE, RELIGIOUSLY PREOCCUPIED. SHE DENIES SUICIDAL/HOMICIDAL IDEATION. PATIENT DENIES AUDITORY/VISUAL HALLUCINATION, DENIES DEPRESSION/ANXIETY. PATIENT HAD LARGE BOWEL MOVEMENT THIS MORNING. AFFECT IS EUTHYMIC, MOOD HAPPY. PATIENT IS NON-COMPLIANT WITH FALL PROTOCOL, SHE TURNS OFF WHEELCHAIR ALARM, WALKS BEHIND WHEELCHAIR INSTEAD OF SITTING ON THE W/C, DESPITE ENCOURAGEMENT/REDIRECTION FROM MULTIPLE STAFF. NO SIGN OF ACUTE DISTRESS NOTED AT THIS TIME, WILL CONTINUE TO REDIRECT, AND MONITOR FOR SAFETY.
[2020-05-01 20:15] VITALS: BP 173/92
--- NOTE | 2020-05-02 00:47 | NUR ---
Assumed care on 05/01/20 @ 19:15, ambulating throughout the mileu with a walker with a steady gait. Cooperated with assessment and medication administration. HRRR, Lungs CTA, ABD Normoactive bowel sounds noted. Reports BM earlier today was hard. Uses BSC for urination, Good output noted. Reports pain in hands and hips, and "everywhere" of 8-9/10. Tylenol ER given as scheduled for pain. A&Ox4 reports president is "President Johnny Hawthorne, and Jaci is his . Denies anxiety and depression "in general" Denies SI/HI/AH/VH. Got out of bed @ about 2300 and sat in the day room for "a spell, to get my anxiety better". Uses BSC for urination.
--- NOTE | 2020-05-02 08:18 | NUR ---
RT Progress Note- Nuvia continues to show improvement in her participation level during structured recreation groups. She continues to have a flight of ideas and plans for discharge, but is easily reoriented to reality. Nuvia does not display any aggression or agitation during RT interactions.
[2020-05-02 08:30] VITALS: BP 181/98
--- NOTE | 2020-05-02 08:50 | NUR ---
PT SITTING IN DINING ROOM. PT TOOK MEDS WITHOUT ANY ISSUES. PT LUNGS CLEAR. PT STATED SHE STILLS HAS PAIN TO LOWER BACK ALL THE TIME OF 8 ON 1-10 SCALE. UNDER LEFT EYE IS PUFFY AND WEEPY. PT TALKED ABOUT GETTING EYE DROPS TO LEFT EYE AND HAVEN'T HAD THEM FOR 4 MONTHS.
--- NOTE | 2020-05-02 11:00 | NUR ---
RECHECKING PT BP VIA MACHINE LEFT ARM IS 178/109 AND RT ARM 212/122. TOOK BP MANUAL AND LEFT ARM 192/110, PULSE 80. PT STATED SHE JUST WANTED TO , PT LYING IN BED. NOTIFIED DR. FRANCO ABOUT BP.
--- NOTE | 2020-05-02 12:30 | NUR ---
WENT TO PT ROOM. PT CRYING AND STATED SHE JUST WANTED TO AND GO TO [facility]. SAT WITH PT AND TALKED WITH HER AND READ FROM HER WHITE LITTLE BOTTLE. PT STATED SHE WILL GO WITH THE RAPTURE AND SHE CAN'T CONTROL WHEN SHE PASSES.
--- NOTE | 2020-05-02 14:34 | NUR ---
RECHECKED BP PRIOR TO ADM NEW DOSE OF LABATELOL, 170/95. PT STATED SHE FEELS BETTER.
--- NOTE | 2020-05-02 15:00 | NUR ---
PT DID GIVE A NEW TESTAMENT BIBLE WITH A BIBLE VERSE IN IT FOR SOMEONE GOING HOME.
[2020-05-02 17:13] VITALS: BP 181/98
--- NOTE | 2020-05-02 18:24 | NUR ---
PT CALMER AND UNDERSTANDING ABOUT FEELING SELFISH AND NOT THINKING OF OTHERS. PT STATED THIS RODENT CONTROL WORKER SAVED HER FROM FEELING SO BAD. PT HAS BEEN IN W/C AND ASSIST WITH TRANSFERS. NO BM NOTED TODAY.
[2020-05-02 19:16] VITALS: BP 157/83
--- NOTE | 2020-05-02 23:35 | NUR ---
Assumed care on 05/01/20 @ 19:15. Cooperated with assessment and compliant with medication administration. Additional snack provided after snack period at patient's request. Education provided that sleeping works better at night, and that food is not available at night and that sleeping in the day / evening and missing meals and snacks is contributing to her hunger. Using BSC to urinate, drinks water and eats ice, large output of urine noted via bedside comode.
--- NOTE | 2020-05-02 23:46 | NUR ---
@ 23:15, patient sitting in a w/c in the day room, tearful and asking if her family members are alive or . Reports that she does not feel well physically. vital signs taken, 177/98 88 18 96% Hospitalist deportation officer Karina Saravia called and provided an order for one time Clonadine 0.2 mg which was given along with Tramadol for pain in the upper extremities 04/04. Patient retired to bed, bed in low position, bed alarm set, will continue to monitor q 12 minutes for patient safety.
[2020-05-02 23:55] VITALS: BP 177/98
--- NOTE | 2020-05-03 06:39 | NUR ---
Slept 1.6 hours, restless and manic, unable to settle down and lie down.
[2020-05-03 07:53] VITALS: BP 118/79
--- NOTE | 2020-05-03 08:47 | NUR ---
ASSUMED CARE AT 0700 THIS ORNING. PT. IN THE DINING ROOM. SHE WENT TO HER ROOM SHORTLY AFTER 0750 STATING SHE FELT ILL. WHEN THIS DIRECTOR WORKERS COMPENSATION ENTERED HER ROOM, SHE WAS MOANING. SHE STATED, "CALL HOSPICE CARE". WHEN ASSESSING HER IT WAS NOTED SHE HAD LUNGS CTA, HRR, ABDOMEN SOFT (SHE STATED SHE HAD A BM YESTERDAY), BS PRESENT IN ALL QUADRANTS. LEGS +2 TO +3 BILATERALLY. UPON TOUCHING HER LEGS, SHE SAID THEY HURT. PEDAL PULSES PRESENT IN FEET BILATERALLY. SHE HAS NOT SLEPT IN SEVERAL DAYS. SHE WAS ASKED TO LAY DOWN UNTIL A DR. CAN COME AND REASSESS HER. SHE STATED SHE WOULD DO THIS. SHE DID NOT EAT BREAKFAST AND KEPT STATING SHE IS NOT SURE SHE CAN EAT THIS MORNING. HER MEDS WERE HELD FOR THE MOMENT SHE STATES SHE CANNOT TAKE THEM AT THIS TIME.
[2020-05-03 10:54] VITALS: BP 113/79
--- NOTE | 2020-05-03 13:20 | NUR ---
Karina with [facility] contacted ELENA and told her that she does not have any mem. care beds right now, however, she asked for permission to give the referral to her other colleagues at [facility] other locations. ELENA granted permission. ELENA received a call from [facility] who does not have mem. care beds. ELENA left a msg for the director of patient care of [facility]. ELENA received a call from [facility] who said they cannot meet pt's behavioral health needs. ELENA left a msg for the director of patient care of [facility]. ELENA left a msg for the director of patient care of [facility]. ELENA left a msg for Darryl with [facility] . ELENA team will continue to follow pt
[2020-05-03 19:39] VITALS: BP 148/81
--- NOTE | 2020-05-03 23:55 | NUR ---
Care assumed of patient at 1915: Patient seated in dayroom at start of shift. Patient interacting and socializing with staff and peers. Calm, pleasant and cooperative. Patient denies SI/HI/AH/VH. No delusional or paranoia behaviors observed. Patient alert and oriented x3, disoriented on current time. Denies depression and anxiety. Reports feeling "down" due to having pain. Patient had difficulty focusing during assessment due to preoccupation and fixation on her pain. Reported pain to bilateral hands originally. As the night progressed, patient came to the nurses station to report a new location of pain. Those include hands, elbows, knees and ankles. Patient did request Cyclobenzaprine with HS medication. Medication provided with HS medication. Took HS medication whole without any difficulties or resistance. Patient declined HS snack. Patient later requested PRN Aspercream, which was provided. Patient ambulating this evening, using w/c as a walker. Gait steady, good balance. Patient restless at times, walking from her room to dayroom a couple different occasions. Patient has had difficulty falling asleep this evening. Patient seated in her bed reading at this time.
[2020-05-04 06:21] LABS: CALCIUM 9.4 mg/dL (8.5-10.1); CREATININE 0.8 mg/dL (0.6-1.0); POTASSIUM 3.5 mmol/L (3.5-5.1)
[2020-05-04 06:38] VITALS: BP 178/92
[2020-05-04 08:00] VITALS: BP 178/92
--- NOTE | 2020-05-04 12:02 | NUR ---
WAS LOUDLY TEADRFUL IN DAYRROM THIS AM C/O PAIN "ALL OVER" WHEN GIVEN BENGAY SMALL AMOUNT IN CUP PER REQUEST TO RUB ON JOINTS SHE WAS OBSERVED TO BE RUBBING IT INTO FACE. BOTH MD AND THIS RN PROVIDED EDUCATION RE RISKS OF GETTING IN EYES AND PT STATES UNDERSTANDING "I DIDN'T KNOW-MY FACE HURTS TOO" TRAMADOL 50MG GIVEN PO PRN ALONG WITH AM MEDICATIONS FOR RA PAIN RATED AN 8 ON 1-10 SCALE. DEOES REPORT DECREASE IN PAIN TO A 4/5 AT APPROX 1100. IS NOTED TO HAVE MULTIPLE ITEMS SALT PACKETS,OLD [place] MULTIPLE BELONGINGS FROM ROOM IN WC STATES "I HAVE TO BRING EVERYTHING WITH ME MY ROOMMATE IS STEALING FROM ME"
--- NOTE | 2020-05-04 14:06 | NUR ---
ELENA followed up with and sent referrals to the following: [facility] - denied. Does not have mem. care beds. [facility] - denied pt. Cannot meet needs. 05/03. [facility] - no mem[facility] care beds available. Referrals sent to their other locations. [facility] - left msg for admissions 05/04. [facility] - denied. No beds until 05/10. check back on 05/10. [facility] - denied. Cannot meet needs[facility] - left msg for admissions 05/04. [facility] - denied. No Medicaid beds available. [facility] - left msg for admissions 05/04. [facility] - denied. No beds. [facility] [place] - pt has been there in the past a few times for rehab. They will not accept her again. [facility] no available beds, and unable to meet pt's needs. [facility] - referral sent 05/04[facility] - referral sent 05/04[facility] - referral sent 05/04[facility] - referral sent [facility] - referral sent 05/04[facility] - [facility] 05/04 SW team will continue to follow pt during her stay on this unit.
[2020-05-04 20:04] VITALS: BP 182/104
--- NOTE | 2020-05-05 02:01 | NUR ---
PRN Cyclobenzaprine 5mg p.o. provided for muscle spasm in the back. Patient laid down in bed after taking.
--- NOTE | 2020-05-05 06:43 | NUR ---
awakened @ 0520 crying, c/o pain, VS taken, 204/127 88 16 96% noted. Samia Dewitt RELOCATION ASSOCIATE called and he gave an order for one time Tramadol 50 and give 0600 scheduled Labetalol 150, pain rated at 10. Found 3 empty bullion packages in patient's bed. Patient counseled on danger of eating condiments. Medicaiton order given and @ 06:15 VS repeated 205/123 1480 97%. New order HCTZ given @ 0615.
[2020-05-05 07:35] VITALS: BP 108/76
--- NOTE | 2020-05-05 11:17 | NUR ---
pT WAS IN DAY ROOM THIS AM WHEN I CAME ON DUTY. [place] WAS VERY HYPER VERBAL AND TALKING FROM TOPISC TO ANOTHER. PT WAS ASKED NOT TO DRINK BOTH PACKETS, OR SUGAR OR JELLY. IT WAS EXPLAINED THAT HER B/P THIS AM WAS HIGH AND THIS WOULD AND HAS EFFECTED HER BLOOD GLUCOSE LEVELS. PT AGREED TO THIS .. ON ASSESSMENT LUNGS WERE CLEARX 2, PEDAL PULSE WAS EQUAL AND FELT. BOWEL SOUNDS HEARD. PT REPORTED LG. FORMED BM AND CLEAR URINE. AT THE TIME OF THIS WRITING PT WAS CALMER AND LESS AGGITATIONED. STAFF TO CONTINUE TO OBSERVE PT.
--- NOTE | 2020-05-05 19:27 | NUR ---
Care of patient assumed at 1915. Patient is sitting in wheel chair in her room. Pleasant upon approach. A/O x 3. Forgetful. States pain is "not bad at all today", then rates it 06/04. Only stated goal is to read the bible. HS, LS, BS all WNL for patient. Many requests. Restless - in and out of room. Goes to day room to avoid sleep and nods off at table. Returns to her room at 2100, takes HS meds, and falls asleep. Up and down through the night. Refuses to wait for staff to assist with transfers. In day room again at 0230 unable to hold her head up but refuses to go back to bed.
[2020-05-05 19:40] VITALS: BP 168/96
[2020-05-06 09:05] VITALS: BP 174/96
--- NOTE | 2020-05-06 18:05 | NUR ---
PATIENT CALM AND AGREEABLE. MED COMPLIANT, HAD PAIN EARLIER THIS EVENING BUT ULTRAM HELPED WITH PAIN. MAKES NEEDS KNOWN. DENIES ANY S/I OR H/I COMPLIANT WITH MEDICATIONS. ATE WELL - NO MANIC BEHAVIOR OBSERVED TODAY.
--- NOTE | 2020-05-06 19:30 | NUR ---
Care of patient assumed at 1915. Patient is sleeping in bed. Wakes easily when HS medications are brought to her room. A/O x 3. Reports pain 6/10 in back and 4/10 in wrists. Compliant with HS meds. States she wants to receive services from PT, OT, ST and sleep therapy. HS, LS, BS all WNL. Patient is assisted to BSC x 3 from [phone]. Asleep in bed at 2300.
[2020-05-06 19:45] VITALS: BP 172/85
[2020-05-07 07:48] VITALS: BP 145/82
--- NOTE | 2020-05-07 10:21 | NUR ---
Chapincito WAS IN DAY ROOM WHEN I CAME ON DUTY TODAY. PT ATE 85% OF BKF. MEDICATIONS TAKEN WHOLE WITH , MIMINAL AMT OF PAIN IN GENERALIZED AREAS. PT IS PLESANT AND VERBALIZES HER THOUGHTS WELL. ASSESSMENT , LUNGS CLEAR, PDEDAL PULSE STRONG AND EQUAL, BOWEL SOUND ACTIVE.LAST BM WAS THIS AM. PARTICIPATED IN GROUP AND IN DAY ROOM READING HER BIBLE. PT VOICEDMSHE WANTS TO GO HOME SHES READY AND TOLD THE DR SUCH.
[2020-05-07 10:29] VITALS: BP 145/82
--- NOTE | 2020-05-07 10:33 | NUR ---
Nutrition followup: pt continues on [facility] unit with unspecified psychosis. Last weight of 140# appears to be error. All other weights 152-157#. No loss over admit. Pt continues to eat very well, 75-100% of meals/snacks on carb controlled diet. No recent BG being taken. Did see documentation of pt found eating salt/herb condiments at night which has been discouraged and pt agreed to no longer do this. On vitamin. Last BM documented on 05/03. REC monitor and add stool softener if necessary. Orders meals as desired. Continue as low nutrition risk.
[2020-05-07 15:50] LABS: URINE BILIRUBIN NEGATIVE (Negative); URINE BLOOD NEGATIVE (Negative); URINE CLARITY CLEAR; URINE COLOR YELLOW; URINE GLUCOSE-RANDOM* NEGATIVE (Negative); URINE KETONES NEGATIVE (Negative); URINE LEUKOCYTES-REFLEX NEGATIVE (Negative); URINE NITRITE-REFLEX NEGATIVE (Negative); URINE PROTEIN (DIPSTICK) 2+ (Negative); URINE SPECIFIC GRAVITY 1.015 (1.005-1.035); URINE UROBILINOGEN 0.2 E.U./dl (0.2-1.0)
[2020-05-07 15:59] LABS: BACTERIA-REFLEX None Seen /HPF (None Seen); SQUAMOUS 0-3 Few /LPF (0-3); URINE RBC None Seen /HPF (0-2); URINE WBC-REFLEX 0-5 Rare /HPF (0-5)
[2020-05-07 16:00] LABS: CASTS None Seen /LPF (None Seen); CRYSTALS None Seen /LPF (None Seen)
--- NOTE | 2020-05-07 16:11 | NUR ---
Pt was invited to SW group but refused due to sleeping
--- NOTE | 2020-05-07 19:30 | NUR ---
Care of patient assumed at 191. Patient is currently being confined to her room while COVID test results are pending. Patient refuses to comply with isolation, coming out into day room and hallway several times. Patient is taken to seclusion room as isolation precaution at 1999. At 2029 lab results are posted showing test as negative. Patient is compliant with HS meds, then Patient is taken to day room to join the milieu as she has been screaming to be allowed to do for the past hour. Once in the day room she insists that it is too laoud and wants to go back to her room. Once in her room she calls out and/or rings her fountain contiunously, wanting constant 1:1 attention. Patient has also figured out how to unlock the bed controls and keeps raising the bed to a higher position, causing increased fall risk. When confronted on this, patient becomes agitated, threatening, verbally abusive. Dr. Green is contacted and orders received for [id number]/Ativan 1mg IM one time. Injection administered and patient is sleeping shortly after.
[2020-05-07 20:00] VITALS: BP 163/92
[2020-05-08 08:38] VITALS: BP 142/71
[2020-05-08 09:18] VITALS: BP 142/71
--- NOTE | 2020-05-08 10:24 | NUR ---
ELENA received message from [facility] that they are not accepting any new admissions due to having COVID positive residents in the facility right now. ELENA also received a message from Jonh with [facility] [phone] cell stating they did not receive a referral on pt. ELENA faxed referral again.
[2020-05-08 11:07] LABS: HEMATOCRIT 24.2 % (37.0-47.0); MCH 27.6 pg (26.0-34.0); MCHC 32.9 g/dL (28.0-37.0); MCV 83.7 fL (80.0-100.0); RBC 2.89 mil/uL (4.20-5.00); RDW 16.7 % (10.5-14.5); WBC 7.8 thou/uL (4.0-11.0)
--- NOTE | 2020-05-08 12:13 | NUR ---
RT Progress Note- Nuvia remains present in the milieu and variable in group participation. She has recently been challenged on her timing of "excuses" or complaints that arise at the start of meals or groups such as anxiety, fabricated deaths, or even impending heart attacks. When challenged to work through it, she is able to maintain a calmer and more focused composure.
--- NOTE | 2020-05-08 15:12 | NUR ---
ASSUMED CARE AT 0700 THIS MORNING. PT. UP, DRESSED AND SITTING AT THE DINNING ROOM TABLE, ASLEEP. SHE WOKE UP AND TOOK HER MORNING MEDICATIONS WITHOUT PROBLEMS NOTED. SHE DID NOT EAT A LOT OF BREAKFAST DUE TO DROWSINESS. SHE CONTINUES TO COMPLAIN OF DRY, ITCHY SKIN. HAND LOTION IS RUBBED ON HER HANDS FOR THIS. SHE COMPLAINED OF ARTHRITIC PAIN. HER ARTHRITIS CREAM WAS APPLIED TO HER HANDS AND KNEES. SHE STATED THAT MADE HER FEEL BETTER. SHE HAS BEEN ON THE UNIT IN THE MILIEU MOST OF THE DAY. SHE HAS BEEN ON THE PHONE TODAY AND HAD TO BE ASKED TO RETURN IT BY STAFF.
--- NOTE | 2020-05-08 16:47 | NUR ---
ELENA received a call from Zenaida with [facility] [phone] inquiring about pt's discharge plan. Zenaida informed they are contracted with her insurance plan to provide support for patients who have at least 6 medical diagnoses with the goal of keeping them out of the hospital. Zenaida reports pt struggles at home even with their support and the support of a administrator health care facility who has been approved for 37 hrs/wk. She does not believe it is safe for patient to return home and wanted the treatment team to be aware of their concerns as they are in the home with pt on a daily basis. ELENA will provide this information to the treatment team.
[2020-05-08 20:12] VITALS: BP 143/85
[2020-05-08 22:00] VITALS: BP 143/85
--- NOTE | 2020-05-09 01:46 | NUR ---
Assumed care of patient this pm shift. Patient in good spirits, calm and cooperative. Patient takes medications whole and is med adherent. Patient denies hi/si. Patient states that her whole body hurts and that she needs something for neuropathy. Patients affect is variable. Patients assessment shows no signs of acute distress, vital signs stable. Patient is able to stand with assistance but is unsteady in her gait. Patient is considered to be a falls risk. We will continue to monitor patient per hospital protocol.
[2020-05-09 07:36] VITALS: BP 153/80
--- NOTE | 2020-05-09 09:34 | NUR ---
Asumed care 0700. No offered complaints. Wanted to know when she would get cleaned up. She wants help with her back and feet. Given new yellow socks. Participated in AM Yoga group. Compliant with medications.
--- NOTE | 2020-05-09 11:29 | NUR ---
It was discussed in team meeting 05/09 that Nuvia has an accessive amount of papers and hygiene items in her possession that she frequently drops, resulting in a cause for attention from staff. [facility] and this television writer together tidied Nuvia's room and wheelchair while she was seated in a Gerichair in the day room. Her papers from groups, etc have been relocated to the locker room with the rest of her belongings.
--- NOTE | 2020-05-09 16:28 | NUR ---
ELENA sent referrals to the following [facility], [facility] [phone] [facility] [phone] [facility] [phone] Pt was denied by [facility] due to being unable to meet Pts needs
--- NOTE | 2020-05-09 18:15 | NUR ---
Used toilet several times. Self feeds, eats well, with good appetite. Had pain crisis, medicated with no further complaint. Attended groups. Pleasant, more relaxed. No SI/HI/AH/VH. Social with select peers.
[2020-05-09 19:59] VITALS: BP 159/83
[2020-05-09 21:40] VITALS: BP 159/83
--- NOTE | 2020-05-10 00:57 | NUR ---
Assumed care of patient this pm shift. Patient in good spirits. Patient denies hi/si. Patient states that she has rheumatoid arthritis that gives her pain. Patient recieved muscle rub cream for her hands and feet. Patient also recieved arthritis tylenol which seems to help. Patient was calling out and talking loudly in her room, when questioned to whom she was speaking she stated "Im just talking to Darin." Patient takes medications whole with thin fluids. Patient can bare weight and stand with assistance but usually uses the wheelchair. Patients assessment shows no signs of acute distress. Patients affect is blunted. Patient is considered a falls risk and has on yellow socks but insists on wearing her own top. Patient is alert and oriented x4. We will continue to monitor per hospital protocol.
--- NOTE | 2020-05-10 10:20 | NUR ---
Elena called [facility] and they are full, left another VM for [facility], [facility], and [facility]. ELENA sent referral to [facility], and [facility].
[2020-05-10 13:12] VITALS: BP 143/76
--- NOTE | 2020-05-10 15:01 | NUR ---
Kat confirmed that [facility]. KAT provided the DPOA paperwork and Medicaid number per additional paperwork requested. Kat then called 4 more times and left VM with admissions, GITA, human resources administrator for f/u. [facility] then received a VM that the referral was making it's way to [facility]. It is possible they will accpet this pt. D/C could happen tomorrow if the accpetance arrives prior to 4pm. Otherwise d/c will be Thursday.
--- NOTE | 2020-05-10 16:16 | NUR ---
Pt was denied at the following [facility] due to being full[facility]
--- NOTE | 2020-05-10 19:24 | NUR ---
Care of patient assumed at 1915. Patient is sitting in her room. Calm and cooperative with assessment. A/O x 3. Rates arthritis pain 6/10 and requests pain medication. This nurse explains that it is charted that she was given Tramadol at 1605 and it is ordered every 6 hours, so will not be available until 2200. Patient is amenable to trying tylenol and arthritis cream. Administered at 2014. Patient reports that she received news that 2 facilities in [place] may accept her, which has her spirits up. Denies SI/HI. HS, LS, BS all WNL. Compliant with HS meds. Out in day room until 2300. Requesting more arthritis cream and Tramadol. This nurse tells her arthritis cream kael not be available again until 0200, but Tramadol can be given at midnight. Patient is accepting of this.
[2020-05-10 19:51] VITALS: BP 180/94
[2020-05-10 21:10] VITALS: BP 171/89
[2020-05-11 07:41] VITALS: BP 128/73
--- NOTE | 2020-05-11 12:49 | NUR ---
NO ACUTE ANXIETY OR AGITATION NOTED OR REPORTED SO FAR THIS AM. HAS BEEN VISIBLE IN DAYROOM SITTING QUIETLY WITH PEERS. DOES ATTEND GROUPS WITH PROMPTING BUT FREQUENTLY STATES "I CAN'T" REPORTS FEELING LESS "NERVOUS" [facility] "TOLD ME I WOULD BE LEAVING SOON-2 OR [address] WANT ME TO LIVE THERE" CONTINUES TO REPORT CHRONIC RA PAIN MOSTLY IN HANDS AND UE JOINTS-PAIN RATED A 5 ON 1-10 SCALE-SO FAR HAS NOT REQUESTED PRN PAIN MEDICATIONS STATING "ITS OK-NOT BAD" CONTINUES ON FALLS PRECAUTIONS
--- NOTE | 2020-05-11 14:05 | NUR ---
Kat spoke with [facility] and [facility] have accepted this pt clinically and are verifying her medicaid with their business office and contacting pt's sister. Sw completed the DA 124 C- pt does not trigger a level II due to her dementia DX- and faxed it with the medicaid confimration to [facility] . Kat also requested a COVID 19 test be completed on this pt in case she will d/c on Thursday.
--- NOTE | 2020-05-11 14:41 | NUR ---
KAT called Shona and she did not want her sister to go to [facility], and was resistant to placement. Kat advised that this pt was uncovered by her insurance and would need to go to the first place that accepted her. [facility] stated that all they would need now is the banking account # and the routing # for admission. Shona stated that she did not have that information, and was wating for the bank to send her checks and that they wouldnt arrive for another 6 business days. Shona also stated that she needed to talk to her family in [place] before " allowing " this pt to go to [facility] because it makes her " vomit" thinking about her there. Kat attmpted to reassure her and reducate her about nursing homes and also had to educate her about how medicaid covers nurising home stays, as she was concerned that they would be " taking all of her money". KAT suggested that she had until thursday at noon to get back wiht her SW. Kat reported this to staff.
[2020-05-11 19:30] VITALS: BP 171/85
--- NOTE | 2020-05-12 03:43 | NUR ---
05-11-20 CARE TRANSFERED 1914 PT SITTING IN DAY ROOM. 1939 PT AAOX3, VSS, RR EVEN AND NONLABORED ON RA. PT REPORTS PAIN IN HANDS R/T RA SCALE AT 7 ON 0-10 SCALE. PT DENIES SI/SH/HI/VAH. PT DENIES ANY NEW CONCERNS AT THIS TIME. DURING MEDICATION ADMIN PT HAD ZERO DIFFICULTIES. THROUGHOUT NURSING ROUNDS PT HAD ZERO ACUTE EMOTIONAL OR MEDICAL DISTRESS NOTED. WILL CONTINUE TO MONITOR PER [facility] PROTOCOL.
[2020-05-12 06:30] LABS: HEMATOCRIT 25.9 % (37.0-47.0); HEMOGLOBIN 8.2 gm/dL (12.0-15.0); MCH 26.6 pg (26.0-34.0); MCHC 31.7 g/dL (28.0-37.0); MCV 83.9 fL (80.0-100.0); RBC 3.08 mil/uL (4.20-5.00); RDW 16.5 % (10.5-14.5)
[2020-05-12 09:12] VITALS: BP 181/98
[2020-05-12 10:05] VITALS: BP 181/98
--- NOTE | 2020-05-12 12:03 | NUR ---
1100 RESUMMED CARE OF PATIENT FROM OVERNIGHT SHIFT THIS AM, PATIENT IN DAY ROOM TALKING WITH ANOTHER PATIENT. PATIENT ATE BREAKFAST TOOK MEDICATION WITHOUT INCIDENCE. PATIENT DENIES SI/AI/AH/VH AT PRESENT PATIENT'S ABDOMEN SOFT ROUND BOWEL SOUNDS PRESENT. PATIENTS LUNGS CLEAR PATIENT HAD COVID TEST DONE THIS AM. PATIENT IS ECXITED SHE HAS A PLACEMENT PATIENT CALM COOPERATIVE NO BEHAVIORS. WILL CONTINUE TO MONITOR PATIENT FOR SAFETY AND BEHAVIORS.
[2020-05-12 18:51] VITALS: BP 166/85
[2020-05-12 22:05] VITALS: BP 166/85
--- NOTE | 2020-05-12 23:11 | NUR ---
2255 RESUMMED CARE FROM DAY SHIFT THIS EVENING, PATIENT IN ROOM DOING HYGIENE. PATIENT WOULD LIKE A SHOWER TOMMOROW BEFORE SHE GETS DISCHARGED TO [facility] ON THURSDAY. PATIENT DENIES SI/HI/AH/VH AT PRESENT PATIENT IS ORIENTED TIMES 4. PATIENTS ABDOMEN SOFT ROUND BOWEL SOUNDS PRESENT LUNGS CLEAR, PATIENT IS ANXIOUS ABOUT LEAVING. SHE CALLED HER SISTER KARISSA TO TELL HER WHAT TV SHE WANTS FOR HER NEW PLACEMENT. PATIENT COOPERATIVE VERY PLEASANT WILL CONTINUE TO MONITOR PATIENT FOR SAFETY AND BEHAVIORS.
--- NOTE | 2020-05-13 02:03 | NUR ---
ASSUMED CARE OF PATIENT AT APPROXIMATELY 0015, PATIENT IN DAY ROOM UNDER SUPERVISION OF STAFF, APPEARS TO BE SLEEPING WITH NO ACUTE S/S OF DISTRESS, NO RESPIRATORY DISTRESS OBSERVED. NURSING WILL MAINTAIN SUPERVISION AND MAINTAIN Q12 CHECKS TO ENSURE SAFETY AT ALL TIMES.
[2020-05-13 05:25] VITALS: BP 136/73
[2020-05-13 07:45] VITALS: BP 162/85; BP 184/100
--- NOTE | 2020-05-13 08:05 | NUR ---
Assumed care 0700. No complaints. Self fed breakfast. Pleasant, cooperative, compliant with medications.
[2020-05-13 11:34] LABS: URINE BILIRUBIN NEGATIVE (Negative); URINE BLOOD NEGATIVE (Negative); URINE CLARITY CLEAR; URINE COLOR YELLOW; URINE GLUCOSE-RANDOM* NEGATIVE (Negative); URINE KETONES NEGATIVE (Negative); URINE LEUKOCYTES-REFLEX NEGATIVE (Negative); URINE NITRITE-REFLEX NEGATIVE (Negative); URINE PROTEIN (DIPSTICK) 2+ (Negative); URINE UROBILINOGEN 0.2 E.U./dl (0.2-1.0)
[2020-05-13 11:44] LABS: BACTERIA-REFLEX None Seen /HPF (None Seen); CASTS None Seen /LPF (None Seen); CRYSTALS None Seen /LPF (None Seen); SQUAMOUS 0-3 Few /LPF (0-3); URINE RBC 0-2 Rare /HPF (0-2); URINE WBC-REFLEX 0-5 Rare /HPF (0-5)
[2020-05-13 14:31] LABS: ABSOLUTE NEUTROPHILS 3.5 thou/uL (1.4-8.2); BASOPHILS 0.9 % (0.0-2.0); EOSINOPHILS 5.9 % (0.0-3.0); HEMATOCRIT 24.6 % (37.0-47.0); HEMOGLOBIN 8.2 gm/dL (12.0-15.0); LYMPHOCYTES 19.6 % (24.0-44.0); MCH 27.5 pg (26.0-34.0); MCHC 33.1 g/dL (28.0-37.0); MONOCYTES 9.1 % (1.0-8.0); PLATELET COUNT 308 thou/uL (150-400); POLYS 64.5 % (36.0-66.0); RBC 2.97 mil/uL (4.20-5.00); RDW 16.7 % (10.5-14.5); WBC 5.4 thou/uL (4.0-11.0)
[2020-05-13 14:48] LABS: CALCIUM 9.6 mg/dL (8.5-10.1); CREATININE 0.8 mg/dL (0.6-1.0); MAGNESIUM 1.9 mg/dL (1.8-2.4); PHOSPHORUS 3.7 mg/dL (2.5-4.9); POTASSIUM 3.8 mmol/L (3.5-5.1)
--- NOTE | 2020-05-13 18:05 | NUR ---
Voided several times today. Stated whn she feels the ure to urinate she has to go immediately to the toilet. Urine and stool specimens obtained, taken tolab. Page out to Dr. Caceres for lab results. Pt. is aware her arthritis is advancing as evidenced by hand joints getting more swollen. Hd BM large amount rock solid hard stopping up toilet. Ankles swollen non pitting edema. Lungs clear, heart regular, + bowel sounds.
[2020-05-13 20:36] VITALS: BP 139/88
--- NOTE | 2020-05-14 01:04 | NUR ---
Assumed care on 05/13/20 @ 19:15, Awake, alert and anticipating leaving hospital tomorrow for LTC facility. Uses BSC to urinate, took HS meds cooperatively including Trazadone for sleep. Cooperative with care, urinates in BSC multiple times. Refuses to lie in bed to sleep, and is up in W/C or recliner overnight. Pleasant affect, Spoke to Family member on phone @ 21:30. Phone calls supervised and limited to 15 minutes. VS stable, HRRR, Lungs CTA, ABD N x 4 Q reports BM x 2 today.
[2020-05-14 08:52] VITALS: BP 140/91
--- NOTE | 2020-05-14 10:45 | NUR ---
ELENA spoke with pt who had her acct number with her in a folder. ELENA made a copy of the sheet she wrote it on, and returned the folder to pt. ELENA contacted pt's sister Shona. No answer. ELENA left msg. ELENA contacted the admissions team with [facility] at [phone]. No answer. ELENA lft msg. ELENA received a call from [place] with [facility] and gave pt's acct with permission.
[2020-05-14] MEDS ORDERED: LIPITOR10 MG PO (11:24)
[2020-05-14] MEDS ORDERED: TRANDATE 200 M200 M1 PO (11:25)
[2020-05-14] MEDS ORDERED: NORVASC10 MG PO (11:25)
[2020-05-14] MEDS ORDERED: COZAAR 50 MG TA50 M1 PO (11:28)
[2020-05-14] MEDS ORDERED: ADULT LOW DOSE81 MG PO (11:29)
[2020-05-14] MEDS ORDERED: TRAZODONE HCL100 MG PO (11:30)
[2020-05-14] MEDS ORDERED: HALOPERIDOL 1 MG1 MG PO (11:31)
[2020-05-14] MEDS ORDERED: KLOR-CON 10 ER10 MEQ PO (11:32)
[2020-05-14] MEDS ORDERED: SINGULAIR 10 MG10 M1 PO (11:33)
[2020-05-14] MEDS ORDERED: LEFLUNOMIDE20 MG PO (11:34)
[2020-05-14 12:17] VITALS: BP 140/91
[2020-05-14 12:39] VITALS: BP 140/91
--- NOTE | 2020-05-14 13:46 | NUR ---
pT DISCHARGED FROM UNIT @135 PM. [facility] WAS CALLED X2 WITH NO DIRECT PERSON TO GIVE REPORT TO. DISCHARGEGE PACKET SENT WITH PT WITH MEDICATIONS , LAB RESULTS AND DR DISCHARGE REPORT AND BELONGINGS. PT WENT TO NEW FACILITY [facility]IA [facility]. PT ATE WELL . MEICATION GIVEN WITH NO REDSISTANCE THIS AM. JEY PARTICIPATED IN AM GROUP. NO COMPLAINTS VOICED AT THIS TIME.
--- NOTE | 2020-05-14 14:29 | NUR ---
SW D/C NOTE SW faxed discharge docs to [facility]. No other needs for SW team to address at this time.
== END 2020-05-14 13:20 | DRG 885 ==
LOC: SBH 14:58
PROVIDERS: Hospitalist; Internal Medicine; ADMIT Psychiatry & Neurology Psychiatry; ATTEND Psychiatry & Neurology Psychiatry
DX: F25.0 Schizoaffective disorder, bipolar type (principal); F01.50 Vascular dementia, unspecified severity, without behavioral disturbance, psychotic disturbance, mood disturbance, and anxiety; N18.9 Chronic kidney disease, unspecified; R45.851 Suicidal ideations; F23 Brief psychotic disorder; Q61.3 Polycystic kidney, unspecified; E87.1 Hypo-osmolality and hyponatremia; I13.0 Hypertensive heart and chronic kidney disease with heart failure and stage 1 through stage 4 chronic kidney disease, or unspecified chronic kidney disease; I25.10 Atherosclerotic heart disease of native coronary artery without angina pectoris; E78.5 Hyperlipidemia, unspecified; M19.90 Unspecified osteoarthritis, unspecified site; Z96.653 Presence of artificial knee joint, bilateral; G47.33 Obstructive sleep apnea (adult) (pediatric); D47.2 Monoclonal gammopathy; I50.9 Heart failure, unspecified; D64.9 Anemia, unspecified; M54.10 Radiculopathy, site unspecified; E05.90 Thyrotoxicosis, unspecified without thyrotoxic crisis or storm; E87.6 Hypokalemia; E07.81 Sick-euthyroid syndrome; E11.22 Type 2 diabetes mellitus with diabetic chronic kidney disease; Z03.818 Encounter for observation for suspected exposure to other biological agents ruled out; Z90.49 Acquired absence of other specified parts of digestive tract; Z86.73 Personal history of transient ischemic attack (TIA), and cerebral infarction without residual deficits; Z90.710 Acquired absence of both cervix and uterus
CPT/HCPCS: 10880